=== PATIENT | male | born 1950 | race Two or more races ===

== ENCOUNTER 2016-10-23 14:10 | Outpatient (CLI) | payer MEDICARE, OTHER | END 2016-10-23 23:59 | disposition home or self-care (01) | LOC: WOU 14:10 | PROVIDERS: ATTEND Surgery | DX: S61.207A Unspecified open wound of left little finger without damage to nail, initial encounter (principal); X58.XXXA Exposure to other specified factors, initial encounter; Y92.89 Other specified places as the place of occurrence of the external cause; E07.9 Disorder of thyroid, unspecified; Z83.3 Family history of diabetes mellitus; Z82.49 Family history of ischemic heart disease and other diseases of the circulatory system; Z80.9 Family history of malignant neoplasm, unspecified; Z88.0 Allergy status to penicillin | CPT/HCPCS: 11043; A6402; J3490 ==

== ENCOUNTER 2016-10-27 12:50 | Outpatient (CLI) | payer MEDICARE, OTHER | END 2016-10-27 23:59 | disposition home or self-care (01) | LOC: WOU 12:50 | PROVIDERS: ATTEND Surgery | DX: S61.207D Unspecified open wound of left little finger without damage to nail, subsequent encounter (principal); X58.XXXD Exposure to other specified factors, subsequent encounter; R60.0 Localized edema; E07.9 Disorder of thyroid, unspecified; Z98.890 Other specified postprocedural states | CPT/HCPCS: G0463 ==

== ENCOUNTER 2016-11-20 14:04 | Outpatient (CLI) | payer MEDICARE, OTHER | END 2016-11-20 23:59 | disposition home or self-care (01) | LOC: WOU 14:04 | PROVIDERS: ATTEND Surgery | DX: S61.207D Unspecified open wound of left little finger without damage to nail, subsequent encounter (principal); X58.XXXD Exposure to other specified factors, subsequent encounter; R60.0 Localized edema; E07.9 Disorder of thyroid, unspecified; Z98.890 Other specified postprocedural states | CPT/HCPCS: G0463 ==